=== PATIENT | male | born 1980 | race Caucasian/White ===

== ENCOUNTER 2019-08-01 17:20 | Emergency (ER) | payer BC, OTHER ==
[2019-08-01] MEDS ORDERED: NORMAL SALINE 1000 ML 1,000 ML IV ONE (17:29)
[2019-08-01] MEDS ORDERED: ONDANSETRON HCL INJ/PF 4 MG/2 ML SDV IV ONE (17:29)
--- NOTE | 2019-08-01 17:33 | ER Document Report ---
ED Medical Screen (RME) - General Chief Complaint: Abdominal Pain Stated Complaint: ABDOMINAL PAIN Time Seen by Provider: 08/01/19 17:23 Primary Care Provider: ROSANNA GUY FNP-C [Primary Care Provider] - Follow up as needed Notes: Patient is a 39-year-old male who presents emergency department with a chief complaint of abdominal pain. Pain is in his mid upper abdomen patient's pain started 2 weeks ago. He has been seeing his primary care provider and was told that he was constipated. He was taking magnesium citrate and now is having bowel movements with no problem. Patient states he had labs drawn and has an ultrasound ordered, but states that the pain has gotten worse and cannot handle it anymore. Exam: Tender mid upper abdomen. I have greeted and performed a rapid initial assessment of this patient. A comprehensive ED assessment and evaluation of the patient, analysis of test results and completion of medical decision making process will be conducted by an additional ED providers. TRAVEL OUTSIDE OF THE [place] IN LAST 30 DAYS: No - Related Data Allergies/Adverse Reactions: No Known Allergies Allergy (Verified 07/19/12 13:14) Past Medical History GI Medical History: Reports: Hx Gastroesophageal Reflux Disease - Immunizations Hx Diphtheria, Pertussis, Tetanus Vaccination: Yes Physical Exam - Vital signs Vitals: Temp Pulse BP Pulse Ox 98.7 F 102 H 160/102 H 97 08/01/19 17:24 08/01/19 17:24 08/01/19 17:24 08/01/19 17:24 Course - Vital Signs Vital signs: Temp Pulse Resp BP Pulse Ox 98.7 F 102 H 160/102 H 97 08/01/19 17:24 08/01/19 17:24 08/01/19 17:24 08/01/19 17:24 Doctor's Discharge - Discharge Referrals: ROSANNA GUY FNP-C [Primary Care Provider] - Follow up as needed
[2019-08-01 17:57] LABS: ABSOLUTE EOSINOPHILS # (AUTO) 0.1 10^3/uL (0.0-0.6); ABSOLUTE LYMPHOCYTES (AUTO) 2.5 10^3/uL (0.5-4.7); ABSOLUTE MONOCYTES (AUTO) 0.8 10^3/uL (0.1-1.4); BASOPHILS % (AUTO) 0.5 % (0-2); EOSINOPHILS % (AUTO) 1.5 % (0-6); HEMATOCRIT 47.5 % (37.9-51.0); HEMOGLOBIN 16.9 g/dL (13.5-17.0); LYMPHOCYTES % (AUTO) 33.8 % (13-45); MEAN CORPUSCULAR HEMOGLOBIN 30.5 pg (27.0-33.4); MEAN CORPUSCULAR HGB CONC 35.7 g/dL (32.0-36.0); MEAN CORPUSCULAR VOLUME 86 fl (80-97); MONOCYTES % (AUTO) 10.2 % (3-13); PLATELET COUNT 253 10^3/uL (150-450); RED BLOOD COUNT 5.54 10^6/uL (4.35-5.55); RED CELL DISTRIBUTION WIDTH 14.6 % (11.5-14.0); TOTAL CELLS COUNTED % (AUTO) 100 %; WHITE BLOOD COUNT 7.4 10^3/uL (4.0-10.5)
[2019-08-01 18:18] LABS: ALBUMIN 4.8 g/dL (3.5-5.0); ALKALINE PHOSPHATASE 71 U/L (38-126); ANION GAP 10 (5-19); ASPARTATE AMINO TRANSFERASE 42 U/L (17-59); BILIRUBIN,DIRECT 0.2 mg/dL (0.0-0.4); BILIRUBIN,TOTAL 0.9 mg/dL (0.2-1.3); BLOOD UREA NITROGEN 15 mg/dL (7-20); CALCIUM 9.8 mg/dL (8.4-10.2); CARBON DIOXIDE 26 mmol/L (22-30); CHLORIDE 104 mmol/L (98-107); GLUCOSE 90 mg/dL (75-110); POTASSIUM 4.7 mmol/L (3.6-5.0); TOTAL PROTEIN 8.1 g/dL (6.3-8.2)
[2019-08-01 19:03] LABS: AMORPHOUS SEDIMENT,URINE TRACE /HPF; APPEARANCE,URINE CLEAR; BILIRUBIN,URINE NEGATIVE (NEGATIVE); COLOR,URINE YELLOW; GLUCOSE, URINE NEGATIVE (NEGATIVE); KETONES,URINE NEGATIVE (NEGATIVE); LEUKOCYTE ESTERASE,URINE NEGATIVE (NEGATIVE); NITRITE,URINE NEGATIVE (NEGATIVE); PROTEIN,URINE NEGATIVE (NEGATIVE); URINE SPECIFIC GRAVITY 1.016; UROBILINOGEN,URINE NEGATIVE mg/dL (<2.0)
--- NOTE | 2019-08-01 19:29 | RADIOLOGY REPORT (SQ) ---
EXAM DESCRIPTION: U/S ABDOMEN LIMITED W/O DOP COMPLETED DATE/TIME: 08/01/2019 6:32 pm REASON FOR STUDY: upper abd pain COMPARISON: None. TECHNIQUE: Dynamic and static grayscale images acquired of the abdomen and recorded on PACS. Additio nal selected color Doppler and spectral images recorded. LIMITATIONS: None. FINDINGS: PANCREAS: No masses. Visualized pancreatic duct normal caliber. Pancreatic tail obscured by gas LIVER: Increased echogenicity. No masses. LIVER VASCULATURE: Normal directional flow of the main portal vein and hepatic veins. GALLBLADDER: Questionable small stone seen near the gallbladder wall PE the areas not well seen. Cou ld represent a small polyp. ULTRASOUND-DETECTED MOSELEY'S SIGN: Negative. INTRAHEPATIC DUCTS AND COMMON DUCT: CBD and intrahepatic ducts normal caliber. No filling defects. INFERIOR VENA CAVA: Not imaged. AORTA: No aneurysm. The proximal aorta was obscured by gas. RIGHT KIDNEY: Normal size, 10.1 cm. Normal echogenicity. No solid or suspicious masses. No hydroneph rosis. No calcifications. PERITONEAL AND RIGHT PLEURAL SPACE: No ascites or effusions. OTHER: No other significant findings. IMPRESSION: Hepatic steatosis. Questionable small gallstone with no evidence of cholecystitis. TECHNICAL DOCUMENTATION: JOB ID: [id number] 2010 [employer]- All Rights Reserved Reading location - IP/workstation name: [email or web address]
[2019-08-01] MEDS ORDERED: HYDROCODONE/ACETAMINOPHEN 5-325 MG (6 TAB/ER DISP) PO PRN (23:08)
[2019-08-01] MEDS ORDERED: ONDANSETRON ODT 4 MG TAB (6 TAB/ER DISP) PO PRN (23:08)
--- NOTE | 2019-08-01 23:14 | ER Document Report ---
ED GI/ - General Chief Complaint: Abdominal Pain Stated Complaint: ABDOMINAL PAIN Time Seen by Provider: 08/01/19 17:23 Primary Care Provider: [facility] [Provider Group] - Follow up as needed Notes: Patient is a 39-year-old male that comes emergency department for chief complaint of upper abdominal pain. Pain is in the epigastric area, patient states he has been having this intermittently for the past 2 weeks. He states he was seen by primary care, told he was constipated, has taken 2 rounds of ma gnesium citrate and has been taking MiraLAX. He states he did clear his bowels very well and he admits that he was eating poorly, however after this he still had an episode where he tried to eat dinner, had severe sharp pains shortly after and is epigastric area, and he believes this cannot be from constipation at this point. He has not had any abdominal surgeries. He does have a history of GERD but he was discharged on Carafate this morning. He denies chest pain, shortness of breath, fever, vomiting, bloody stools. TRAVEL OUTSIDE OF THE [place] IN LAST 30 DAYS: No - Related Data Allergies/Adverse Reactions: No Known Allergies Allergy (Verified 07/19/12 13:14) Home Medications: carafate. senna-s. polyetheylene glycol. mag citrate. amlodipine. wellbutrin. risperdal. cimbastatin. omeprazole. humira Past Medical History - General Information source: Patient - Social History Smoking Status: Former Smoker Frequency of alcohol use: Occasional Drug Abuse: None Lives with: Family Family History: Reviewed & Not Pertinent Patient has suicidal ideation: No Patient has homicidal ideation: No - Past Medical History Cardiac Medical History: Reports: Hx Hypertension GI Medical History: Reports: Hx Gastroesophageal Reflux Disease - Immunizations Hx Diphtheria, Pertussis, Tetanus Vaccination: Yes Review of Systems - Review of Systems Constitutional: No symptoms reported EENT: No symptoms reported Cardiovascular: No symptoms reported Respiratory: No symptoms reported Gastrointestinal: See HPI Genitourinary: No symptoms reported Male Genitourinary: No symptoms reported Musculoskeletal: No symptoms reported Skin: No symptoms reported Hematologic/Lymphatic: No symptoms reported Neurological/Psychological: No symptoms reported Physical Exam - Vital signs Vitals: Temp Pulse BP Pulse Ox 98.7 F 102 H 160/102 H 97 08/01/19 17:24 08/01/19 17:24 08/01/19 17:24 08/01/19 17:24 - Notes Notes: GENERAL: Alert, interacts well. No acute distress. HEAD: Normocephalic, atraumatic. EYES: Pupils equal, round, and reactive to light. Extraocular movements intact. ENT: Oral mucosa moist, tongue midline. Oropharynx unremarkable. Airway patent. LUNGS: Clear to auscultation bilaterally, no wheezes, rales, or rhonchi. No respiratory distress. HEART: Regular rate and rhythm. No murmur ABDOMEN: Mild epigastric tenderness, otherwise unremarkable. No guarding or rigidity. GENITOURINARY: Deferred EXTREMITIES: Moves all 4 extremities spontaneously. No edema, normal radial and dorsalis pedis pulses bilaterally. No cyanosis. BACK: no cervical, thoracic, lumbar midline tenderness. No saddle anesthesia, normal distal neurovascular exam. Moves all extremities in full range of motion. NEUROLOGICAL: Alert and oriented x3. Normal speech. Cranial nerves II through XII grossly intact. PSYCH: Normal affect, normal mood. SKIN: Warm, dry, normal turgor. No rashes or lesions noted. Course - Re-evaluation Re-evalutation: Patient has no significant tenderness on exam, mild tenderness in the epigastric region. CBC, chemistry, lipase, urinalysis unremarkable. Ultrasound showing possible small polyp versus gallstone but no acute findings. Based on patient's exam and symptoms it is possible this is gallbladder related but patient is able to tolerate p.o. without difficulty, he has no current distress or symptoms, and there could be a gastritis/esophagitis component. I discussed with patient in detail. Plan is to treat for possible upper gastrointestinal inflammation, treat symptoms generally, if symptoms resolve he can follow-up with primary care, if symptoms persist he is referred to the surgical clinic. Discussed r eturn precautions in detail. Patient states appreciation and agreement. Stable and well-appearing at time of discharge. - Vital Signs Vital signs: Temp Pulse Resp BP Pulse Ox 98.5 F 73 16 129/81 H 97 08/01/19 23:41 08/01/19 23:41 08/01/19 23:41 08/01/19 23:41 08/01/19 23:41 - Laboratory Result Diagrams: 08/01/19 17:44 08/01/19 17:44 Laboratory results interpreted by me: 08/01/19 08/01/19 17:44 17:44 RDW 14.6 H ALT 58 H Discharge - Discharge Clinical Impression: Epigastric pain Condition: Stable Disposition: HOME, SELF-CARE Additional Instructions: Your laboratory work-up is reassuring. Your ultrasound appears to show either a small polyp or a single stone in the gallbladder, it is still uncertain at this time if your pain is from inflammation of the upper gastrointestinal tract or from your gallbladder. I recommend that you take the Carafate along with the Pepcid and the Zofran medications, you can take additional Rolaids, Tums, Maalox, etc. if needed. You can take Tylenol for pain. You can take the stronger pain medication if needed as well as provided. Avoid NSAIDs, alcohol, smoking, caffeine, spicy food. Start with clear fluids, progress to bland diet. If your symptoms do not resolve despite these treatments I recommend that you follow-up with the surgical clinic referral as listed. Come back if you worsen including fever, vomiting, severe worsening pain, black stools, vomiting blood, or any other concerning symptoms. Prescriptions: Famotidine [Pepcid 20 mg Tablet] 20 mg PO BID #14 tablet Ondansetron [Zofran Odt 4 mg Tablet] 1 - 2 tab PO Q4H PRN #15 tab.rapdis PRN Reason: For Nausea/Vomiting Forms: Return to Work Referrals: [facility] [Provider Group] - Follow up as needed
[2019-08-02 01:02] VITALS: BP 129/81
== END 2019-08-01 23:42 | disposition home or self-care (01) ==
LOC: ER 17:20
DX: R10.13 Epigastric pain (principal); R10.10 Upper abdominal pain, unspecified; Z79.899 Other long term (current) drug therapy; Z87.891 Personal history of nicotine dependence; I10 Essential (primary) hypertension
CPT/HCPCS: 99284; 96374; 36415; 83690; 85025; 80053; 81001; 76705; J2405